=== PATIENT | male | born 1960 | race Caucasian/White ===

== ENCOUNTER 2019-11-19 09:29 | Inpatient (IN) | payer OTHER ==
[~2019-11-19] VITALS: Ht 170.2 cm; Wt 103.2 kg
[2019-11-19] MEDS ORDERED: ACETAMINOPHEN 500 MG TAB PO ONE (09:50)
[2019-11-19] MEDS ORDERED: ACETAMINOPHEN 325 MG TAB PO ONE (10:00)
[2019-11-19 10:55] LABS: Basophils # (auto) 0 10 ^3/uL (0-0.2); Basophils % (auto) 0.2 % (0.0-2.0); Eosinophils # (auto) 0 10 ^3/uL (0-0.8); Eosinophils % (auto) 0.1 % (0.0-7.0); Hematocrit 48.9 % (41.0-53.0); Hemoglobin 16.4 g/dL (13.5-17.5); Lymphocytes # (auto) 0.8 10 ^3/uL (0.4-5.4); Lymphocytes % (auto) 5.7 % (10.0-50.0); Mean Corpuscular Hgb Conc. 33.5 g/dL (32.0-36.0); Mean Corpuscular Volume 92.4 fL (80.0-100.0); Monocytes # (auto) 0.5 10 ^3/uL (0-1.3); Monocytes % (auto) 3.6 % (0.0-12.0); Neutrophils # (auto) 13.5 10 ^3/uL (1.6-8.6); Neutrophils % (auto) 90.4 % (37.0-80.0); Platelet Count (auto) 218 10^3/uL (140-450); Red Cell Distribution Width 13.2 % (11.8-14.3); White Blood Cell 14.9 10^3/uL (4.4-10.8)
[2019-11-19 11:08] LABS: Albumin 3.9 g/dL (3.4-5.0); Calcium 9.2 mg/dL (8.5-10.1); Potassium 4.3 mmol/L (3.5-5.1)
[2019-11-19 11:14] LABS: BUN/Creatinine Ratio 17.6; Bilirubin, Total 0.6 mg/dL (0.2-1.0); Total Protein 7.7 g/dL (6.4-8.2)
[2019-11-19 11:31] LABS: Urine Bacteria NONE SEEN /hpf (None Seen); Urine Blood 3+ /uL (Negative); Urine Mucus FEW (None Seen); Urine Specific Gravity 1.029 (1.001-1.035); Urine WBC 2 /hpf (0 - 3)
[2019-11-19] MEDS ORDERED: SODIUM CHLORIDE 0.9% 1,000 ML IVB ONE (12:27)
[2019-11-19] MEDS ORDERED: TAMSULOSIN HYDROCHLORIDE 0.4 MG CAP PO ONE (12:30)
[2019-11-19] MEDS ORDERED: ONDANSETRON HCL 4 MG/2 ML VIAL IV ONE (12:30)
[2019-11-19] MEDS ORDERED: KETOROLAC TROMETH 30 MG/ML 1ML VIAL IV ONE (12:30)
[2019-11-19] MEDS ORDERED: HYDROcodone-ACET 5/325MG TAB PO PRN (13:45)
[2019-11-19] MEDS ORDERED: ONDANSETRON HCL 4 MG/2 ML VIAL IV PRN (13:45)
[2019-11-19] MEDS ORDERED: NITROGLYCERIN 0.4 MG SL TAB SL PRN (13:45)
[2019-11-19] MEDS ORDERED: MORPHINE SULF INJ 2 MG/ML SYRINGE 1ML IV PRN ×2 (13:45)
[2019-11-19] MEDS ORDERED: ACETAMINOPHEN 500 MG TAB PO PRN (13:45)
[2019-11-19] MEDS: cefTRIAXone 1GM/50ML D5W 50 ML IV SCH (14:32)
[2019-11-19] MEDS: SODIUM CHLORIDE 0.9% 1,000 ML IV SCH ×2 (15:12→21:46)
[2019-11-19 23:15] VITALS: BP 149/94
[2019-11-19 23:50] VITALS: BP 149/94
[2019-11-20] MEDS: KETOROLAC TROMETH 30 MG/ML 1ML VIAL IV PRN ×3 (00:44→23:03)
[2019-11-20] MEDS ORDERED: LOSA-39 PO (03:01)
[2019-11-20] MEDS ORDERED: DIPH1TAB30 PO (03:07)
[2019-11-20 05:30] VITALS: BP 134/77
[2019-11-20 06:10] LABS: Basophils # (auto) 0 10 ^3/uL (0-0.2); Basophils % (auto) 0.3 % (0.0-2.0); Eosinophils # (auto) 0.1 10 ^3/uL (0-0.8); Eosinophils % (auto) 0.8 % (0.0-7.0); Hemoglobin 14.5 g/dL (13.5-17.5); Lymphocytes # (auto) 2.7 10 ^3/uL (0.4-5.4); Lymphocytes % (auto) 22.5 % (10.0-50.0); Mean Corpuscular Hemoglobin 30.8 pg (28.0-32.0); Mean Corpuscular Hgb Conc. 33.6 g/dL (32.0-36.0); Mean Corpuscular Volume 91.7 fL (80.0-100.0); Monocytes # (auto) 1.2 10 ^3/uL (0-1.3); Monocytes % (auto) 9.7 % (0.0-12.0); Neutrophils # (auto) 8.1 10 ^3/uL (1.6-8.6); Neutrophils % (auto) 66.7 % (37.0-80.0); Platelet Count (auto) 201 10^3/uL (140-450); Red Cell Distribution Width 13.4 % (11.8-14.3); White Blood Cell 12.1 10^3/uL (4.4-10.8)
[2019-11-20 06:27] LABS: INR 1.04 (0.9-1.15); Partial Thromboplastin Time 25.1 sec (23.64-32.05)
[2019-11-20 06:48] LABS: BUN/Creatinine Ratio 22.8; Calcium 8.1 mg/dL (8.5-10.1)
[2019-11-20 09:00] VITALS: BP 171/80
[2019-11-20] MEDS: LOSARTAN POTASSIUM 50 MG TAB PO SCH (09:34)
[2019-11-20] MEDS: cefTRIAXone 1GM/50ML D5W 50 ML IV SCH (09:34)
[2019-11-20] MEDS: SODIUM CHLORIDE 0.9% 1,000 ML IV SCH ×3 (09:38→23:03)
[2019-11-20] MEDS: FAMOTIDINE 20 MG TAB PO SCH (09:39)
[2019-11-20 11:51] VITALS: BP 147/81
[2019-11-20 13:00] VITALS: BP 159/96
[2019-11-20] MEDS ORDERED: ONDANSETRON HCL 4 MG/2 ML VIAL IV ONE (13:06)
[2019-11-20] MEDS ORDERED: PROPOFOL 10 MG/ML 20 ML IV ONE (13:06)
[2019-11-20] MEDS ORDERED: DexAMETHasone SOD PHOS 10MG/1ML VIAL INJ ONE (13:09)
[2019-11-20] MEDS ORDERED: KETOROLAC TROMETH 30 MG/ML 1ML VIAL ONE (13:09)
[2019-11-20] MEDS ORDERED: fentaNYL CITRATE 100 MCG/2 ML VL ONE (13:09)
[2019-11-20] MEDS ORDERED: GLYCOPYRROLATE 0.2 MG/ML 1ML VIAL ONE (13:09)
[2019-11-20] MEDS ORDERED: MIDAZOLAM HCL 1MG/1ML-2 ML VIAL ONE (13:09)
[2019-11-20] MEDS ORDERED: HYDROmorphone HCL 2 MG/ML VL ONE (13:19)
[2019-11-20] MEDS ORDERED: ONDANSETRON HCL 4 MG/2 ML VIAL IV PRN (14:15)
[2019-11-20] MEDS ORDERED: HYDROmorphone HCL 2 MG/ML VL IV PRN (14:15)
[2019-11-20 17:00] VITALS: BP 141/95
[2019-11-20] MEDS ORDERED: TAMSULOSIN HYDROCHLORIDE 0.4 MG CAP PO SCH (18:00)
[2019-11-20 22:00] VITALS: BP 150/77
[2019-11-21 05:00] VITALS: BP 145/74
[2019-11-21 05:42] LABS: Basophils # (auto) 0 10 ^3/uL (0-0.2); Basophils % (auto) 0.1 % (0.0-2.0); Eosinophils # (auto) 0 10 ^3/uL (0-0.8); Hematocrit 44.7 % (41.0-53.0); Lymphocytes # (auto) 0.9 10 ^3/uL (0.4-5.4); Mean Corpuscular Hemoglobin 30.8 pg (28.0-32.0); Mean Corpuscular Hgb Conc. 33.5 g/dL (32.0-36.0); Mean Corpuscular Volume 92.2 fL (80.0-100.0); Monocytes # (auto) 0.8 10 ^3/uL (0-1.3); Monocytes % (auto) 6.9 % (0.0-12.0); Neutrophils # (auto) 9.8 10 ^3/uL (1.6-8.6); Platelet Count (auto) 192 10^3/uL (140-450); Red Blood Cells 4.85 10^6/uL (4.5-5.90); White Blood Cell 11.5 10^3/uL (4.4-10.8)
[2019-11-21 05:57] LABS: Calcium 8.3 mg/dL (8.5-10.1); Potassium 4.1 mmol/L (3.5-5.1)
[2019-11-21 09:00] VITALS: BP 132/65
[2019-11-21] MEDS: FAMOTIDINE 20 MG TAB PO SCH (10:03)
[2019-11-21] MEDS: cefTRIAXone 1GM/50ML D5W 50 ML IV SCH (10:03)
[2019-11-21] MEDS: LOSARTAN POTASSIUM 50 MG TAB PO SCH (10:04)
[2019-11-21] MEDS: SODIUM CHLORIDE 0.9% 1,000 ML IV SCH ×2 (10:05→13:42)
[2019-11-21 13:00] VITALS: BP 151/72
[2019-11-21 13:06] VITALS: BP 132/65
== END 2019-11-21 16:20 | disposition home or self-care (01) | DRG 669 ==
LOC: ER 09:29 → OVERFLOW 09:30 → WEST WING 23:01
PROVIDERS: ADMIT Nurse Practitioner Acute Care; ATTEND Internal Medicine
PROC: 0TC78ZZ Extirpation of Matter from Left Ureter, Via Natural or Artificial Opening Endoscopic (ICD-10-PCS; principal; 2019-11-20 13:06)
DX: N13.6 Pyonephrosis (principal); N20.2 Calculus of kidney with calculus of ureter; E66.9 Obesity, unspecified; N17.0 Acute kidney failure with tubular necrosis; Z68.35 Body mass index [BMI] 35.0-35.9, adult; K57.30 Diverticulosis of large intestine without perforation or abscess without bleeding; I12.9 Hypertensive chronic kidney disease with stage 1 through stage 4 chronic kidney disease, or unspecified chronic kidney disease; N18.9 Chronic kidney disease, unspecified; K76.0 Fatty (change of) liver, not elsewhere classified; Z82.49 Family history of ischemic heart disease and other diseases of the circulatory system; Z87.891 Personal history of nicotine dependence
CPT/HCPCS: 36415; 71045; 74176; 80048; 80053; 81001; 83735; 85025; 85610; 85730; 86850; 86900; 86901; 87086; G0378; J0696; J1100; J1885; J2250; J2405; J2704